=== PATIENT | male | born 1950 | race Caucasian/White ===

== ENCOUNTER 2022-06-08 11:24 | Outpatient (CLI) | payer MEDICARE, SELFPAY ==
[2022-06-08 14:16] LABS: Chloride* 105 mmol/L (96-114); Potassium* 4.4 mmol/L (3.6-5.1); Sodium* 142 mmol/L (135-149)
[2022-06-08 14:18] LABS: Cholesterol* 143 mg/dL (90-199)
[2022-06-08 14:19] LABS: Blood Urea Nitrogen* 16 mg/dL (7-30); Calcium* 9.1 mg/dL (8.4-10.6); Carbon Dioxide* 28 mmol/L (20-32); Creatinine* 0.9 mg/dL (0.5-1.5); Estimated Glomerular Filt Rate 91 ml/min; Glucose* 98 mg/dL (60-115); Triglycerides* 64 mg/dL (40-149)
[2022-06-08 14:20] LABS: HDL Cholesterol* 50 mg/dL (>=40); LDL Cholesterol Calculated 81 mg/dL (<100)
[2022-06-08 14:50] LABS: PSA Screen* 4.05 ng/mL (0.10-4.00)
== END 2022-06-08 11:25 | disposition home or self-care (01) ==
PROVIDERS: PCP Family Medicine; Visit Provider Family Medicine
DX: Z00.00 Encounter for general adult medical examination without abnormal findings (principal); I10 Essential (primary) hypertension; R97.20 Elevated prostate specific antigen [PSA]; R73.9 Hyperglycemia, unspecified; L30.9 Dermatitis, unspecified; Z12.5 Encounter for screening for malignant neoplasm of prostate
CPT/HCPCS: 80048; 80061; 84153

== ENCOUNTER 2022-11-06 12:59 | Outpatient (CLI) | payer MEDICARE, SELFPAY | END 2022-11-06 13:00 | disposition home or self-care (01) | LOC: NFLDREF 11-09 10:45 | PROVIDERS: PCP Family Medicine; Referring Provider Family Medicine; Visit Provider Family Medicine | DX: R97.20 Elevated prostate specific antigen [PSA] (principal) | CPT/HCPCS: 84153; 84154 ==

== ENCOUNTER 2023-06-07 08:21 | Outpatient (CLI) | payer MEDICARE, SELFPAY | END 2023-06-07 08:22 | disposition home or self-care (01) | LOC: NFLDREF 06-10 17:50 | PROVIDERS: PCP Family Medicine; Referring Provider Family Medicine; Visit Provider Family Medicine | DX: Z00.00 Encounter for general adult medical examination without abnormal findings (principal); I10 Essential (primary) hypertension; R97.20 Elevated prostate specific antigen [PSA]; Z13.6 Encounter for screening for cardiovascular disorders | CPT/HCPCS: 80048; 80061; 84153 ==

== ENCOUNTER 2023-07-30 08:38 | Outpatient (CLI) | payer MEDICARE, SELFPAY ==
--- NOTE | 2023-07-30 08:45 | CRLHL7_ITS ---
For Patients: As a result of the Century Cures Act, medical imaging exams and procedure reports are released immediately into your electronic medical record. You may view this report before your referring provider. If you have questions, please contact your health care provider. Indication: Progressive gait instability. Technique: Multiplanar, multisequence MRI of the brain was performed without intravenous contrast. Comparison: None relevant available. Findings: Mild thinning of the corpus callosum. The pituitary gland and clivus appear intact. Mild degenerative change visualized upper cervical spine. There is no restricted diffusion. No intracranial hemorrhage. The ventricles are proportionate to the cerebral sulci. The 4th ventricle appears midline. The basal cisterns appear patent. No abnormal extra-axial fluid collection identified. Mild parenchymal volume loss. Mild to moderate T2 FLAIR hyperintense foci within the subcortical and periventricular white matter, favored to represent chronic ischemic microvascular disease. Region of encephalomalacia and gliosis right bolden radiata. There is no intracranial mass, abnormal mass-effect or midline shift identified. Major intracranial vascular flow voids appear grossly intact. Both globes are preserved. Impression: 1. No acute/subacute infarct. 2. Mild to moderate chronic ischemic microvascular disease. 3. Chronic right bolden radiata infarct. Dictated by Sanju Ware MD @ 07/30/2023 2:49:55 PM (Electronically Signed)
--- NOTE | 2023-07-30 09:30 | CRLHL7_ITS ---
For Patients: As a result of the Century Cures Act, medical imaging exams and procedure reports are released immediately into your electronic medical record. You may view this report before your referring provider. If you have questions, please contact your health care provider. HISTORY: Localized swelling/lump. TECHNIQUE: Noncontrast MRI of the right thumb. Axial, sagittal and T1, proton density-T2, proton density fat-sat and STIR images were acquired. COMPARISON: Radiographs 07/18/2023. FINDINGS: Osseous structures: There is no acute fracture or avascular necrosis. No pathologic marrow replacement process. Tendons: The flexor and extensor tendons are intact. Joint spaces: The mild osteoarthritic changes of the 1st CMC articulation. There are a few tiny periarticular ganglia noted about the base of the 1st metacarpal bone. These are noted on axial PD fat-sat #31 of series 4 for example and measure approximately 5 mm. The MCP joint of the thumb is intact. Collateral ligaments of that joint space are maintained. There are osteoarthritic changes of the interphalangeal joint of the thumb. Collateral ligaments of that joint space maintained. Degenerative changes of the 2nd MCP joint. Soft tissues: There is some nonspecific infiltration of the subcutaneous fat of the right thumb noted along its ulnar aspect as seen on coronal T1 image #81 of series 7 for example. There is no fluid collection at that site nor associated ganglion at that site. IMPRESSION: 1. Non-specific infiltration of the subcutaneous fat of the right thumb along its ulnar aspect. This could be posttraumatic, inflammatory, related to chronic scarring or to soft tissue tumor. MRI does not suggest a specific diagnosis in this case. 2. Osteoarthritic changes of the 1st CMC and IP joints. 3. Tiny sub cm periarticular ganglia adjacent to the palmar base of the metacarpal bone of the thumb. Dictated by Esa Larkin MD @ 07/31/2023 2:08:32 PM (Electronically Signed)
== END 2023-07-30 08:39 | disposition home or self-care (01) ==
LOC: MRI 08:39
PROVIDERS: PCP Family Medicine; Visit Provider Orthopaedic Surgery
DX: R22.31 Localized swelling, mass and lump, right upper limb (principal); M19.071 Primary osteoarthritis, right ankle and foot
CPT/HCPCS: 70551; 73218

== ENCOUNTER 2023-11-18 08:00 | Outpatient (CLI) | payer MEDICARE, SELFPAY ==
--- OUTSIDE RECORDS SUMMARY | 2023-11-26 07:11 | XMS_ITS ---
Author Name Unknown Organization [facility] Address [address] [place] [address] Care Team Providers Care Orthopaedic Technologist Name Role Phone Unavailable Unavailable Unavailable Surgery Details Not on file Complications Check Surgery Details section. Procedure Estimated Blood Loss Check Surgery Details section. Procedure Findings Check Surgery Details section. Procedure Specimens Taken Check Surgery Details section.
--- OUTSIDE RECORDS SUMMARY | 2023-11-26 07:11 | XMS_ITS | Encounter Summary ---
Author Name Unknown Organization [facility] Address [address] [place] [address] Care Team Providers Care Jet Man Name Role Phone Needs Pcp, Assignment Primary Care Provider [phone] Encounter Details Date Type Department Care Team (Latest Contact Info) Description 04/15/1995 Orders Only Mark Lindo MD Social History Tobacco Use Types Packs/Day Years Used Date Smoking Tobacco: Never Assessed Sex and Gender Information Value Date Recorded Sex Assigned at Not on file Gender Identity Not on file Sexual Orientation Not on file documented as of this encounter Plan of Treatment Not on file documented as of this encounter Visit Diagnoses Not on filedocumented in this encounter Care Teams Jet Man Relationship Specialty Start Date End Date Needs Pcp, [place] [address] PCP - General 03/22/22 documented as of this encounter
--- OUTSIDE RECORDS SUMMARY | 2023-11-26 07:11 | XMS_ITS | Encounter Summary ---
Author Name Unknown Organization [facility] Address [address] [place] [address] Care Team Providers Care Trailer Body Assembler Name Role Phone Elsewhere, Pcp Primary Care Provider Unavailabl e Reason for Visit * Reason Onset Date Comments Results 07/18/2023 Encounter Details Date Type Department Care Team (Late st Contact Info) Description 07/18/2023 Clinical Communication Department of Urology in [place], [place] [address] [place] [address] Sean Walker M.D. 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 No 02/20/2023 Within the last year, have y ou been humiliated or emotionally abused in other ways by your partner or ex-partner? No Within the last year, have y ou been kicked, hit, slapped, or otherwise physically hurt by your partner or ex-partner? No 02/20/2023 Within the last year, have y ou been raped or forced to have any kind of sexual activity by your partner or ex-partner? No 02/20/2023 Overall Financial Resource Strain (CARDIA) Answe r Date Recorded How hard is it for you to pa y for the very basics like food, housing, medical care, and heating? Not hard at all 02/20/2023 Exercise Vital Sign Answer Date Recorde d On average, how many days pe r week do you engage in moderate to strenuous exercise (like a brisk walk)? 5 days 02/20/2023 On average, how many minutes do you engage in exercise at this level? 30 min 02/20/2023 Hunger Vital Sign Answer Date Recorded Within the past 12 months, y ou worried that your food would run out before you got the money to buy more. Never true 02/21/20 Within the past 12 months, t he food you bought just didn't last and you didn't have money to get more. Never true 02/20/2023 PRAPARE - Transportation Answer Date Re corded In the past 12 months, has l ack of transportation kept you from medical appointments or from getting medications? No 02/09 In the past 12 months, has l ack of transportation kept you from meetings, work, or from getting things needed for daily living? No 02/20/2023 Nutrition Answer Date Recorded Nutrition: EVOO Fat Source Unknown 02/20 On average, how many serving s of fruits and vegetables do you eat per day (serving size is equal to 1 cup or approximately the size of a tennis ball)? 5 or more 02/20/2023 Dental Answer Date Recorded Dental: Regular Dentist Yes 02/21/20 Employment Answer Date Recorded Employment status Retired 02/20/2023 Housing Stability Answer Date Recorded What is your living situation today? I have a [facility] place to live 02/20/2023 Sex and Gender Information Value Date Recorded Sex Assigned at Male 07/24/2023 7:51 PM RETAIL CUSTOMER SERVICE REPRESENTATIVE Gender Identity Male 07/24/2023 7:51 PM RETAIL CUSTOMER SERVICE REPRESENTATIVE Sexual Orientation Straight 07/24/2023 7: 51 PM RETAIL CUSTOMER SERVICE REPRESENTATIVE documented as of this encounter Plan of Treatment Not on file documented as of this encounter Visit Diagnoses Not on filedocumented in this encounter Care Teams Trailer Body Assembler Relationship Specialty Start Date End Date Elsewhere, Pcp PCP - General Internal Medicine 02/22/23 documented as of this encounter
--- OUTSIDE RECORDS SUMMARY | 2023-11-26 07:11 | XMS_ITS | Clinical Summary ---
Author Name Unknown Organization [facility] Address [address] [place] [address] Care Team Providers Care Car Body Designer Name Role Phone Needs Pcp, Assignment Primary Care Provider [phone] Source Comments You are receiving this document as you are listed as the primary care provider,follow-up provider, or the patient has been referred to you for consultation.This is in compliance with the Medicare and[facility] EHR Incentive Program,which states Providers who transition their patient to another setting of careor provider of care or refers their patient to another provider of care shouldprovide summary care record for each transition of care or referral. [facility] Allergies No known active allergies Medications Medication Sig Dispensed Refills Start Date End Date Status simvastatin (AKA ZOCOR) 10 MG tablet Take 10 mg by mouth nightly. 11/09/2015 Active lisinopril (ZESTRIL) 5 MG tablet Take 5 mg by mouth daily. 11/07/2021 Active Active Problems No known active problems Immunizations Name Administration Dates Next Due Influenza Vaccine (3+years) ([facility]) 008 Td 07/07/2003,01/17/1993 Family History Medical History Relation Name Comments Cataract Father Amblyopia/Strabismus Negative Family History Diabetes Negative Family History Glaucoma Negative Family History Macular Degeneration Negative Family History Retinal Detachment Negative Family History Relation Name Status Comments Father Social History Tobacco Use Types Packs/Day Years Used Date Smoking Tobacco: Never Sex and Gender Information Value Date Recorded Sex Assigned at Not on file Gender Identity Not on file Sexual Orientation Not on file Last Filed Vital Signs Vital Sign Reading Time Taken Comments Blood Pressure 134/78 12/26/2007 8:07 AM CDT Pulse 70 12/26/2007 8:07 AM CDT Temperature 36.6 ??C (97.9 ??F) 09/06/2006 2 :39 PM DIE MOUNTER C: 36.6 C Respiratory Rate - - Oxygen Saturation - - Inhaled Oxygen Concentration - - Weight 78.5 kg (172 lb 15.9 oz) 008 8:07 AM CDT C: 78.5kg Height 179.7 cm (5' 10.75) 12/26/2007 8:07 AM CDT C: 179.7cm Body Mass Index 24.3 12/26/2007 8:07 AM CDT Plan of Treatment Health Maintenance Due Date Last Done Comments Hep C Screening (Preventive Services) 1950 Medicare Annual Wellness Visit 1950 Colonoscopy 09/19/2012 09/18/2012, 08/18/2008 Cholesterol 12/25/2012 12/26/2007, 11/11, 10/09/2005, Additional history exists COVID-19 Vaccine ( season) 2023 08/08/2021, 11/04/2020, 10/14/2020 Influenza (#1) 2023 06/11/2022, 09/2020, 05/30/2020, Additional history exists DTaP/Tdap/Td (2 - Tdap) 07/29/2024 07/29/20 14, 07/07/2003, 01/17/1993 Pneumococcal 65+ Yrs Completed 07/28/2019, 06/25/20 18 Zoster/Shingles Completed 12/28/2020, 07/12, 04/05/2015 HepA Aged Out No longer eligi ble based on patient's age to complete this topic HepB Aged Out No longer eligi ble based on patient's age to complete this topic Hib Aged Out No longer eligi ble based on patient's age to complete this topic IPV (Polio) Aged Out No longer eligi ble based on patient's age to complete this topic MCV4 Aged Out No longer eligi ble based on patient's age to complete this topic Procedures Procedure Name Priority Date/Time Associated Diagnosis Comments ENDOSCOPY, COLON, SCREENING/DIAGNOSTI C Routine 08/18/2008 4:54 PM DIE MOUNTER LIPID PANEL & DIRECT LDL (IF NEEDED) Routine 12/26/2007 8:57 AM CDT from Last 3 Months or Most Recently Relevant to Health Maintenance Results * Endoscopy, colon, diagnostic (08/18/2008 4:54 PM DIE MOUNTER) User Conversion PN GI PROCEDURE ALVARO WONG HP CONVERSION * (ABNORMAL) Lipid Panel and Direct LDL(If Needed) (12/26/2007 8:57 AM CDT) Hours Fasting 12.0 Hours HP CONVERSION Cholesterol/HDL Ratio Screen 4.6 No normal range HP CONVERSION Cholesterol 192 <200 mg/dL HP CONVERSION HDL Cholesterol 42 >40 mg/dL HP CONVERSION Triglycerides 163(H) 0 - 149 mg/dL HP CONVERSION LDL Calculated 117 0 - 130 mg/dL HP CONVERSION Comment: 12/26/2007 8:57 AM CDT Bj Smart DIRECTOR OF HOME HEALTH SERVICES, SPANISH PROFESSOR LAB_1 Performing Organization Address City/[facility]/ZIP Co de Phone Number HP CONVERSION from Last 3 Months or Most Recently Relevant to Health Maintenance Care Teams Car Body Designer Relationship Specialty Start Date End Date Needs Pcp, Assignment [place], [place] [address] PCP - General 03/22/22
--- OUTSIDE RECORDS SUMMARY | 2023-11-26 07:11 | XMS_ITS | Encounter Summary ---
Author Name Unknown Organization [facility] Address [address] [place] [address] Care Team Providers Care Wool Spotter Name Role Phone Needs Pcp, Assignment Primary Care Provider [phone] Encounter Details Date Type Department Care Team (Latest Contact Info) Description 04/04/1995 Orders Only Virgilio Carvalho MD Social History Tobacco Use Types Packs/Day Years Used Date Smoking Tobacco: Never Assessed Sex and Gender Information Value Date Recorded Sex Assigned at Not on file Gender Identity Not on file Sexual Orientation Not on file documented as of this encounter Plan of Treatment Not on file documented as of this encounter Visit Diagnoses Not on filedocumented in this encounter Care Teams Wool Spotter Relationship Specialty Start Date End Date Needs Pcp, [place] [address] PCP - General 03/22/22 documented as of this encounter
--- OUTSIDE RECORDS SUMMARY | 2023-11-26 07:11 | XMS_ITS | Referral Summary ---
Author Name Unknown Organization [facility] Address [address] [place] [address] Care Team Providers Care Educational Program Assistant Name Role Phone Elsewhere, Pcp Primary Care Provider Unavailabl e Source Comments Patient records contain information from all sites at [facility]. For routine questions regarding patient records, call [phone] during business hours, M-F 8:00 AM - 5:00 PM Central Time. Record requests for emergency care only can be directed to [phone] at any time.[facility] Allergies Active Allergy Reactions Criticality Noted Date Comments Cilantro Other (see comments) 02/22/2023 Tight throat Medications Medication Sig Dispensed Refills Start Date End Date Status lisinopriL (PRINIVIL,ZESTRIL) 5 mg tablet Take 1 tablet by mouth daily. 11/07/2021 Active triamcinolone (KENALOG) 0.1 % ointment Apply 1 Application topically as needed. Active omega-3 fatty acids 1,000 mg capsule Take 1,000 mg by mouth daily. 06/11/2022 Active glucosamine sulfate (GLUCOSAMINE) 500 mg capsule Take 500 mg by mouth daily. 06/11/2022 Active MULTIVITAMIN ORAL Take 2 tablets by mouth daily. Double X - made by [employer]ri[employer]ite (multivitamin with minerals) - pt takes 2 tabs BID (half of serving size) 06/11/2022 Active BILBERRY ORAL Take 100 mg by mouth as needed. 06/11/2022 Active herbal drugs capsule Take 1 capsule by mouth daily. Prostate Health - NutriLite Active Social History Tobacco Use Types Packs/Day Years Used Date Smoking Tobacco: Never Passive Smoke Exposure: Past Smokeless Tobacco: Never Tobacco Cessation:Counseling Given: Not Answered Comments:2nd hand smoke in home as child (father and office building later [...] money to buy more. Never true 02/21/20 23 Within the past 12 months, t he [...] your living situation today? I have a [facility] place to live 02/20/2023 Sex and Gender Information Value Date Recorded Sex Assigned at Male 07/24/2023 7:51 PM SYSTEMS QA ANALYST Gender Identity Male 07/24/2023 7:51 PM SYSTEMS QA ANALYST Sexual Orientation Straight 07/24/2023 7: 51 PM SYSTEMS QA ANALYST Plan of Treatment Not on file Care Teams Educational Program Assistant Relationship Specialty Start Date End Date Elsewhere, Pcp PCP - General Internal Medicine 02/22/23
--- OUTSIDE RECORDS SUMMARY | 2023-11-26 07:11 | XMS_ITS | Clinical Summary ---
Author Name Unknown Organization [facility] Address [address] [place] [address] Care Team Providers Care Sorority Supervisor Name Role Phone Elsewhere, Pcp Primary Care Provider Unavailabl e Source Comments Patient records contain information from all sites at [facility]. For routine questions regarding patient records, call [phone] during business hours, M-F 8:00 AM - 5:00 PM Central Time. Record requests for emergency care only can be directed to [phone] at any time.[facility] Allergies Active Allergy Reactions Criticality Noted Date [...] your living situation today? I have a [facility] place to live 02/20/2023 Sex and Gender Information Value Date Recorded Sex Assigned at Male 07/24/2023 7:51 PM CLEANER OPERATOR Gender Identity Male 07/24/2023 7:51 PM CLEANER OPERATOR Sexual Orientation Straight 07/24/2023 7: 51 PM CLEANER OPERATOR Plan of Treatment Health Maintenance Due Date Last Done Comments CT Colonography 1950 Cologuard 1950 Colonoscopy 1950 Colorectal Cancer Screening 1950 Creatinine Level (Kidney Fun ction Test) 1950 FIT 1950 Fasting Glucose for Diabetes Screening 1950 Hepatitis C Screening 1950 Potassium Level 1950 Sodium Level 1950 Depression Screening (Annual PHQ-2) 08/12/2023 Fall Risk Screen (Annual) 08/12/2023 DTaP,Tdap,and Td Vaccines (2 - Td or Tdap) 07/29/2024 07/29/2014, 07/07/2003 Pneumococcal vaccine (65+ years) Completed 07/28/20, 06/25/2018 Zoster Vaccines Completed 12/28/2020, 07/12, 04/05/2015 Influenza Vaccine Completed 06/07/2023, , 07/13/2021, Additional history exists COVID-19 Vaccine Completed 07/18/2023, , 11/04/2020, Additional history exists Care Teams Sorority Supervisor Relationship Specialty Start Date End Date Elsewhere, Pcp PCP - General Internal Medicine 02/22/23
== END 2023-11-18 08:01 | disposition home or self-care (01) ==
LOC: NFLDREF 11-26 07:09
PROVIDERS: PCP Family Medicine; Referring Provider Family Medicine; Visit Provider Family Medicine
DX: R97.20 Elevated prostate specific antigen [PSA] (principal); Z12.5 Encounter for screening for malignant neoplasm of prostate
CPT/HCPCS: 84153; 84154

== ENCOUNTER 2024-03-19 08:04 | Outpatient (CLI) | payer MEDICARE, SELFPAY ==
--- OUTSIDE RECORDS SUMMARY | 2024-03-24 07:27 | XMS_ITS | Clinical Summary ---
Author Organization [facility] Address [address] [place] [address] Care Team Providers Care Ham Passer Name Role Phone Elsewhere, Pcp Primary Care Provider Unavailabl e Source Comments Patient records contain information from all sites at [facility]. For routine questions regarding patient records, call [phone] during business hours, M-F 8:00 AM - 5:00 PM Central Time. Record requests for emergency care only can be directed to [phone] at any time.[facility] Allergies Active Allergy Reactions Criticality Noted Date [...] your living situation today? I have a [facility] place to live 02/20/2023 Sex and Gender Information Value Date Recorded Sex Assigned at Male 07/24/2023 7:51 PM SHELLFISH PROCESSING LABORER Gender Identity Male 07/24/2023 7:51 PM SHELLFISH PROCESSING LABORER Sexual Orientation Straight 07/24/2023 7: 51 PM SHELLFISH PROCESSING LABORER Plan of Treatment Health Maintenance Due Date Last Done Comments CT Colonography 1950 Cologuard 1950 Colonoscopy 1950 Colorectal Cancer Screening 1950 Creatinine Level (Kidney Fun ction Test) 1950 FIT 1950 Fasting Glucose for Diabetes Screening 1950 Hepatitis C Screening 1950 Potassium Level 1950 Sodium Level 1950 Depression Screening (Annual PHQ-2) 08/12/2023 Fall Risk Screen (Annual) 08/12/2023 COVID-19 Vaccine (2022-2 4 season) 2023 07/18/2023, 08/08/2021, 11/04/2020, Additional history exists Influenza Vaccine (#1) 2024 , 06/11/2022, 07/13/2021, Additional history exists DTaP,Tdap,and Td Vaccines (2 - Td or Tdap) 07/29/2024 07/29/2014, 07/07/2003 Pneumococcal vaccine (65+ years) Completed 07/28/20 19, 06/25/2018 Zoster Vaccines Completed 12/28/2020, 07/12, 04/05/2015 Care Teams Ham Passer Relationship Specialty Start Date End Date Elsewhere, Pcp PCP - General Internal Medicine 02/22/23
--- OUTSIDE RECORDS SUMMARY | 2024-03-24 07:27 | XMS_ITS | Referral Summary ---
Author Organization [facility] Address [address] [place] [address] Care Team Providers Care Subpoena Server Name Role Phone Elsewhere, Pcp Primary Care Provider Unavailabl e Source Comments Patient records contain information from all sites at [facility]. For routine questions regarding patient records, call [phone] during business hours, M-F 8:00 AM - 5:00 PM Central Time. Record requests for emergency care only can be directed to [phone] at any time.[facility] Allergies Active Allergy Reactions Criticality Noted [...] your living situation today? I have a [facility] place to live 02/20/2023 Sex and Gender Information Value Date Recorded Sex Assigned at Male 07/24/2023 7:51 PM COMMERCIAL FISHERMAN Gender Identity Male 07/24/2023 7:51 PM COMMERCIAL FISHERMAN Sexual Orientation Straight 07/24/2023 7: 51 PM COMMERCIAL FISHERMAN Plan of Treatment Not on file Care Teams Subpoena Server Relationship Specialty Start Date End Date Elsewhere, Pcp PCP - General Internal Medicine 02/22/23
--- OUTSIDE RECORDS SUMMARY | 2024-03-24 07:27 | XMS_ITS | Encounter Summary ---
Author Organization [facility] Address [address] [place] [address] Care Team Providers Care Hot Wort Settler Name Role Phone Needs Pcp, Assignment Primary Care Provider [phone] Encounter Details Date Type Department Care Team [...] on filedocumented in this encounter Care Teams Hot Wort Settler Relationship Specialty Start Date End Date Needs Pcp, [place] [address] PCP - General 03/22/22 documented as of this encounter
--- OUTSIDE RECORDS SUMMARY | 2024-03-24 07:27 | XMS_ITS ---
Author Organization [facility] Address [address] [place] [address] Care Team Providers Care Wedding Planning Internship Name Role Phone Unavailable Unavailable Unavailable Surgery Details Not on file Complications Check Surgery Details section. Procedure Estimated Blood Loss Check Surgery Details section. Procedure Findings Check Surgery Details section. Procedure Specimens Taken Check Surgery Details section.
--- OUTSIDE RECORDS SUMMARY | 2024-03-24 07:27 | XMS_ITS | Encounter Summary ---
Author Organization [facility] Address [address] [place] [address] Care Team Providers Care Principal Technical Architect Name Role Phone Needs Pcp, Assignment Primary Care Provider [phone] Encounter Details Date Type Department Care Team [...] on filedocumented in this encounter Care Teams Principal Technical Architect Relationship Specialty Start Date End Date Needs Pcp, [place] [address] PCP - General 03/22/22 documented as of this encounter
--- OUTSIDE RECORDS SUMMARY | 2024-03-24 07:27 | XMS_ITS | Clinical Summary ---
Author Organization [facility] Address [address] [place] [id number] Care Team Providers Care Professor Of Mathematics Name Role Phone Needs Pcp, Assignment Primary Care Provider [phone] Source Comments You are receiving this document as you are listed as the primary care provider,follow-up provider, or the patient has been referred to you for consultation.This is in compliance with the Medicare and[facility] EHR Incentive Program,which states Providers who transition their patient to another setting of careor provider of care or refers their patient to another provider of care shouldprovide summary care record for each transition of care or referral. [facility] Allerg[facility] No known active allergies Medications Medication Sig Dispensed Refills Start Date End Date Status simvastatin (AKA ZOCOR) 10 MG tablet Take 10 mg by mouth nightly. 11/09/2015 Active lisinopril (ZESTRIL) 5 MG tablet Take 5 mg by mouth daily. 11/07/2021 Active Active Problems No known active problems Immunizations Name Administration Dates Next Due Influenza Vaccine (3+years) ([facility]) 008 Td 07/07/2003,01/17/1993 Family History Medical [...] ??C (97.9 ??F) 09/06/2006 2 :39 PM CURB BUILDER C: 36.6 C Respiratory Rate - - [...] season) 2023 08/08/2021, 11/04/2020, 10/14/2020 Influenza (#1) 2024 06/11/2022, 09/2020, 05/30/2020, Additional history exists DTaP/Tdap/Td [...] COLON, SCREENING/DIAGNOSTI C Routine 08/18/2008 4:54 PM CURB BUILDER LIPID PANEL & DIRECT LDL (IF NEEDED) Routine 12/26/2007 8:57 AM CDT from Last 3 Months or Most Recently Relevant to Health Maintenance Results * Endoscopy, colon, diagnostic (08/18/2008 4:54 PM CURB BUILDER) User Conversion PN GI PROCEDURE ALVARO WONG [...] Comment: 12/26/2007 8:57 AM CDT Bj 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
== END 2024-03-19 08:05 | disposition home or self-care (01) ==
LOC: NFLDREF 03-24 07:25
PROVIDERS: PCP Family Medicine; Referring Provider Family Medicine; Visit Provider Family Medicine
DX: R97.20 Elevated prostate specific antigen [PSA] (principal); I10 Essential (primary) hypertension; R73.9 Hyperglycemia, unspecified; Z13.220 Encounter for screening for lipoid disorders; Z12.5 Encounter for screening for malignant neoplasm of prostate
CPT/HCPCS: 80053; 80061; G0103

== ENCOUNTER 2025-02-01 08:15 | Outpatient (CLI) | payer MEDICARE, SELFPAY | END 2025-02-01 08:16 | disposition home or self-care (01) | LOC: NFLDREF 02-03 03:13 | PROVIDERS: PCP Family Medicine; Referring Provider Family Medicine; Visit Provider Family Medicine | DX: I10 Essential (primary) hypertension (principal); R73.9 Hyperglycemia, unspecified; R97.20 Elevated prostate specific antigen [PSA]; Z12.5 Encounter for screening for malignant neoplasm of prostate | CPT/HCPCS: 80053; 80061; 84153; 84154; G0103 ==

== ENCOUNTER 2025-03-18 09:47 | Outpatient (RCR) | payer MEDICARE, SELFPAY ==
--- NOTE | 2025-03-18 13:08 | PT.OPE ---
PT [place] Outpatient Eval PT [facility] Outpatient Eval Start: 03/18/25 08:56 Freq: Status: Active Protocol: Document 03/18/25 13:07 FARHAD (Rec: 03/18/25 13:07 FARHAD [id number]) E-signed By Patric Lerma PT Physical Therapy Outpatient Evaluation Insurance Information Recert Due Date 06/16/25 Insurance Name Medicare B Medical Diagnosis M21.372 - foot drop, L Treating Diagnosis M21.372 - foot drop, L G81.94 - L hemiplegia Referring Ny Ortega Subjective Preferred Name Omari Subjective Pt presents with complaints of general LE strength and balance issues. 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 Did a lot of scooting as a young child before he was able to walk. 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 Pt would like to improve his balance, strength and ability to ambulate. Pt reports he performs a Classic Stretch routine - does these 5 days/week. 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 Current Work Status Retired Precautions Therapy Limitations/ Not Limited Systems Review Objective Other/Pertinent B hip AROM: WFL Objective B knee AROM: WFL R hip flexion: 4/5 MMT R knee flexion: 5/5 R knee extension: 5/5 R ankle DF: 5/5 L hip flexion: 3+/5 L knee flexion: 5/5 L knee extension: 4+/5 L ankle DF: 2/5 4-Stage Balance Test Stage I (NBOS): 10 seconds, minimal sway Stage II (in-step): 10 seconds bilaterally, normal sway Stage III (tandem): pt struggles to perform with L foot in rear position; no issue with R foot in rear Stage IV (single leg): pt able to maintain SL balance on R with multiple attempts, unable to balance >3 seconds on L Timed Up and Go (TUG): 9.7 seconds 5 Times Kel-ys-Epuwy: 17.6 seconds 30-Second Rjv-fp-Urrvs: 11 reps Assessment Assessment/ Omari is a very pleasant 75 year old male who presents to [facility] for evaluation and treatment of foot drop and presents with L sided hemiparesis since . Pt presents with functional strength and balance deficits (see objective). I would classify him as a fall risk from these measures, but especially due to him telling me that he falls often while trimming his trees out in the stock on his property. I did recommend that he wear boots rather than tennis shoes while performing these activities to provide greater support to his L ankle. I also encouraged him to consider use of an AFO which he discussed with Dr. Duncan. Pt sounds agreeable to try this in the future. The nature of the pts condition was explained and all questions were answered to the pts satisfaction. Skilled PT services are medically necessary to address deficits and return patient to highest level of function. Recommend physical therapy sessions every other week for 4-6 weeks. Pt prefers to return to therapy as needed. Printout of HEP was given for I completion and pt gives verbal understanding of each exercise. If pt does not return to our clinic in 60 days, this note will serve as his d/c note. Primary Functional Walking, balance, transfers Limitations Plan of Care Rehabilitation [facility] Physical Therapy STG - To be completed in 2-3 weeks: Goals 1. Pt will demo ability to balance on L LE for at least 4 seconds as indication of improved balance to reduce his risk of falls. LTG - To be completed in 4-6 weeks: 1. Pt to be I with HEP so that they may I manage progression of symptoms. 2. Pt will perform at least 12 sit to stands in 30 seconds or less as indication of improved functional strength to make this task easier at home and while at nondenominational. Treatment Plan/ Gait Training,Joint Mobilization,Manual Therapy, Direct Interventions Neuromuscular Re-ed,Self-Care/Home Management, Therapeutic Activities,Therapeutic Exercises Frequency/Duration every other week for 4-6 weeks Patient Will Be Completion of LTG(s),Skills Plateau,Independent w/HEP, Discharged From Independently Progressing Therapy Evaluation Billing Untimed Code 40 Treatment Minutes PT Eval No Charge No Complexity Low Certification Information Initial 03/18/25 Certification Date Ending Certification 05/17/25 Date Provider Signature Yes Required Provider Signature POC & Medical Necessity Shows Agreement With Physician NPI Number Write NPI# Here Physician Comment/ : Change Physician Signature Please Sign/Date Here & Date Requested
== END 2025-05-28 09:55 | disposition home or self-care (01) ==
PROVIDERS: PCP Family Medicine; Visit Provider Podiatrist
DX: M21.372 Foot drop, left foot (principal); G81.94 Hemiplegia, unspecified affecting left nondominant side; Z51.89 Encounter for other specified aftercare
CPT/HCPCS: 97110; 97161